=== PATIENT | female | born 1985 | race Caucasian/White ===

== ENCOUNTER 2016-05-30 19:43 | Emergency (ER) | payer OTHER ==
[~2016-05-30] VITALS: Ht 167.6 cm; Wt 66.5 kg
[2016-05-30 20:41] VITALS: Ht 167.6 cm; Wt 66.5 kg
[2016-05-30] MEDS ORDERED: BACTDS PO (20:52)
[2016-05-30] MEDS ORDERED: IBUP-1542 PO (20:52)
[2016-05-30] MEDS ORDERED: FLUC150T17 PO (20:52)
[2016-05-30] MEDS ORDERED: CEPH-443 PO (20:52)
[2016-05-30] MEDS ORDERED: CLOT45CR19 VAG (20:52)
--- NOTE | 2016-05-30 21:03 | ERD ---
ER Documentation Chief Complaint Date/Time DATE: 05/30/16 TIME: 21:01 Chief Complaint Toe infection x3 days HPI 30-year-old female presents to emergency department for complaints of redness and swelling on the medial aspect of the skin adjacent to the left great toenail. She is complaining of pain, throbbing pain, 4/10 scale, noted some serous discharge coming from it. She denies any trauma and affected area. Patient denies any fever or chills. Patient denies any ingrown toenail of affected area. Patient denies any rash in other parts of the body. ROS All systems reviewed and are negative except as per history of present illness. Medications Home Meds Active Scripts Clotrimazole* (Clotrimazole-7*) Vaginal Cream..g., 1 APPLIC VAG HS for 7 Days, EA Prov:VIRI ANDREW NP 05/30/16 Fluconazole* (Diflucan*) 150 Mg Tablet, 150 MG PO ONCE, #1 TAB Prov:VIRI ANDREW NP 05/30/16 Ibuprofen* (Motrin*) 600 Mg Tab, 600 MG PO Q6H Y for PAIN AND OR ELEVATED TEMP, #30 TAB Prov:VIRI ANDREW NP 05/30/16 Cephalexin* (Keflex*) 500 Mg Capsule, 500 MG PO QID for 10 Days, CAP Prov:VIRI ANDREW NP 05/30/16 Sulfamethoxazole-Trimethoprim* (Bactrim* DS) 800-160 Mg Tab, 1 TAB PO BID for 10 Days, TAB Prov:VIRI ANDREW NP 05/30/16 Allergies Allergies: Coded Allergies: No Known Allergy (Unverified , 05/30/16) PMhx/Soc Medical and Surgical Hx: pt denies Medical Hx, pt denies Surgical Hx FmHx Family History: No coronary disease, No diabetes, No other Physical Exam Vitals Vital Signs Date Time Temp Pulse Resp B/P Pulse Ox O2 Delivery O2 Flow Rate FiO2 05/30/16 20:41 98.3 71 18 118/61 100 Physical Exam GENERAL: The patient is well developed and appropriate for usual state of health, in no apparent distress. CHEST: Clear to auscultation bilaterally. There are no rales, wheezes or rhonchi. HEART: Regular rate and rhythm. No murmurs, clicks, rubs or gallops. No S3 or S4. ABDOMEN: Soft, nontender and nondistended. Good bowel sounds. No rebound or guarding. No gross peritonitis. No gross organomegaly or masses. No Montgomery sign or McBurney point tenderness. BACK: No midline or flank tenderness. EXTREMITIES: Equal pulses bilaterally. There is no peripheral clubbing, cyanosis or edema. No focal swelling or erythema. Full range of motion. Grossly neurovascularly intact. NEURO: Alert and oriented. Cranial nerves 2-12 intact. Motor strength in all 4 extremities with 5/5 strength. Sensation grossly intact. Normal speech and gait. SKIN: Erythematous indurated area on the skin adjacent to the left big toe, on the medial aspect, no fluctuance, no purulent discharge. There is no apparent ecchymosis or petechia. The skin is warm and dry. HEMATOLOGIC AND LYMPHATIC: There is no evidence of excessive bruising or lymphedema. No gross cervical, axillary, or inguinal lymphadenopathy. Procedures/MDM Medical decision making: Patient symptoms were likely consistent with paronychia ,at this time, no fluctuance, incision and drainage is not indicated at this time. No symptoms of neurovascular compromise. No symptoms are sepsis at this time. Patient did not have any trauma on affected area. Radiology exam is not indicated at this time. No suspicion for possible osteomyelitis. Patient was advised to see podiatry specialist for further evaluation of the area, is advised to follow with primary doctor in 1-2 days for reevaluation symptoms, persistent was given for Keflex, Bactrim, ibuprofen, patient verbalized that she frequently gets vaginal candidiasis with antibiotics and requests medications prophylactically point, prescription was given for Diflucan and vaginal suppository clotrimazole cream. Patient was advised to return to emergency department for worsening symptoms. Departure Diagnosis: Primary Impression: Paronychia Laterality: left Qualified Code: L03.012 - Paronychia, left Condition: Stable Patient Instructions: VIRI Landrum NP May 30, 2016 21:03
== END 2016-05-30 21:03 | disposition home or self-care (01) ==
LOC: FTE 19:43 → E/R 21:03
DX: L03.012 Cellulitis of left finger (principal)
CPT/HCPCS: 99284